=== PATIENT | female | born 1980 | race Caucasian/White ===

== ENCOUNTER 2016-10-14 13:55 | Inpatient (IN) | payer BC ==
[2016-10-14] VITALS (18 sets, daily range): BP systolic 110–140; BP diastolic 60–881; PULSE 70–108; TEMP 97.2–98.6
[~2016-10-14] VITALS: Ht 172.7 cm; Wt 69.1 kg
[2016-10-14] MEDS ORDERED: ZOLOFT 100MG100 MG PO (14:21)
[2016-10-14] MEDS ORDERED: PRENATAL MVI (14:21)
[2016-10-14 15:34] LABS: BASO % 0.3 % (0.0-2.0); EOS % 0.3 % (0-4.0); GRAN # 8.8 (1.4-6.5); GRAN % 75.3 % (42.2-75.2); HEMATOCRIT 40.4 % (37.0-47.0); HEMOGLOBIN 14.3 g/dl (12.5-16.0); LYMPH # 2.1 (1.2-3.4); LYMPH % 18.2 % (20.0-51.0); MEAN CELL VOLUME 97 fl (80.0-100.0); MEAN CORPUSCULAR HEMOGLOBIN 34 pg (27.0-31.0); MEAN CORPUSCULAR HGB CONC 35 g/dl (33.0-37.0); MONO # 0.7 (0.1-0.6); MONO % 5.6 % (1.7-9.3); PLATELET COUNT 175 K/mm3 (130-400); RED BLOOD COUNT 4.16 M/mm3 (4.10-5.30); REDCELL DISTRIBUTION WIDTH-CV 12.8 % (11.5-14.5); WHITE BLOOD COUNT 11.7 K/mm3 (4.8-10.8)
[2016-10-15 03:30] VITALS: BP 109/76; PULSE 87; TEMP 97.5
[2016-10-15 08:00] VITALS: BP 101/68; PULSE 85; TEMP 97.8
[2016-10-15 12:30] VITALS: BP 115/76; PULSE 98; TEMP 97.6
[2016-10-15 18:00] VITALS: BP 123/61; PULSE 86; TEMP 97.8
[2016-10-15 21:00] VITALS: BP 108/66; PULSE 86; TEMP 98.4
[2016-10-16] MEDS ORDERED: IBU600 MG PO (08:57)
[2016-10-16 09:30] VITALS: BP 114/65; PULSE 86; TEMP 98.2
== END 2016-10-16 16:05 | disposition home or self-care (01) | DRG 775 ==
LOC: LDRO 13:55 → LDR 14:00 → OB 14:00
PROVIDERS: Obstetrics & Gynecology
PROC: 10E0XZZ Delivery of Products of Conception, External Approach (ICD-10-PCS; principal; 2016-10-14)
PROC: 0KQM0ZZ Repair Perineum Muscle, Open Approach (ICD-10-PCS; 2016-10-14)
DX: O70.1 Second degree perineal laceration during delivery (principal); O09.513 Supervision of elderly primigravida, third trimester; Z3A.38 38 weeks gestation of pregnancy; Z37.0 Single live birth
CPT/HCPCS: J2590

== ENCOUNTER 2018-08-12 05:53 | Inpatient (IN) | payer OTHER ==
[~2018-08-12] VITALS: Ht 172.7 cm; Wt 69.5 kg
[2018-08-12] VITALS (9 sets, daily range): BP systolic 110–130; BP diastolic 65–89; PULSE 64–90; TEMP 97.4–98.2
[~2018-08-12 05:53] MED LIST: IBU600 MG PO; PRENATAL MVI; ZOLOFT 100MG100 MG PO
[2018-08-12 06:25] LABS: BASO % 0.3 % (0.0-2.0); EOS # 0.1 (0.0-0.7); EOS % 0.7 % (0-4.0); GRAN # 5.5 (1.4-6.5); HEMATOCRIT 41.1 % (37.0-47.0); HEMOGLOBIN 14.3 g/dl (12.5-16.0); LYMPH # 4.2 (1.2-3.4); LYMPH % 39.8 % (20.0-51.0); MEAN CELL VOLUME 96 fl (80.0-100.0); MEAN CORPUSCULAR HEMOGLOBIN 33 pg (27.0-31.0); MEAN CORPUSCULAR HGB CONC 35 g/dl (33.0-37.0); MEAN PLATELET VOLUME 11.7 fl (7.4-10.4); MONO # 0.7 (0.1-0.6); MONO % 6.7 % (1.7-9.3); PLATELET COUNT 190 K/mm3 (130-400); REDCELL DISTRIBUTION WIDTH-CV 13.4 % (11.5-14.5)
[2018-08-13] MEDS ORDERED: IBU600 MG PO (07:14)
[2018-08-13 10:18] VITALS: BP 116/78; PULSE 68; TEMP 97.6
== END 2018-08-13 12:20 | disposition home or self-care (01) | DRG 768 ==
LOC: LDRO 05:53 → LDR 05:54 → OB 09:30
PROVIDERS: Obstetrics & Gynecology
PROC: 10E0XZZ Delivery of Products of Conception, External Approach (ICD-10-PCS; principal; 2018-08-12)
PROC: 0H99XZZ Drainage of Perineum Skin, External Approach (ICD-10-PCS; 2018-08-12)
PROC: 0KQM0ZZ Repair Perineum Muscle, Open Approach (ICD-10-PCS; 2018-08-12)
DX: O70.1 Second degree perineal laceration during delivery (principal); Z37.0 Single live birth; O99.344 Other mental disorders complicating childbirth; Z3A.38 38 weeks gestation of pregnancy; O34.83 Maternal care for other abnormalities of pelvic organs, third trimester; L72.0 Epidermal cyst; F41.8 Other specified anxiety disorders
CPT/HCPCS: J7120

== ENCOUNTER → 2022-03-24 | Outpatient (CLI) | payer BC | LOC: MC.RAD 01-05 17:00 | DX: Z12.31 Encounter for screening mammogram for malignant neoplasm of breast (principal) ==